=== PATIENT | female | born 1980 | race Caucasian/White ===

== ENCOUNTER → 2022-03-13 | Outpatient (CLI) | payer BC | LOC: MC.RAD 14:08 | DX: Z12.31 Encounter for screening mammogram for malignant neoplasm of breast (principal) ==

== ENCOUNTER → 2024-05-05 | Outpatient (CLI) | payer BC | LOC: MC.RAD 06:01 | DX: Z12.31 Encounter for screening mammogram for malignant neoplasm of breast (principal) ==